=== PATIENT | female | born 1980 | race Asian ===

== ENCOUNTER 2017-09-19 16:33 | Emergency (ER) | payer OTHER ==
[~2017-09-19] VITALS: Ht 162.6 cm; Wt 88.5 kg
[~2017-09-19 16:33] MED LIST: CLEOCIN HCL300 M1 PO; CODEINE; GUAIFENESIN; LEVOFLOXACIN500 MG; MELOXICAM PO; TESSALON PO; flexeril PO
--- NOTE | 2017-09-19 16:42 | ED AMS/SEIZURE/WEAK/DIZZY ---
History of Present Illness General Chief Complaint: Dizziness Stated Complaint: BIBA FOR DIZZINESS AND HOTFLASHES Source: patient, family, old records Exam Limitations: no limitations Vital Signs & Intake/Output Vital Signs & Intake/Output Vital Signs Date Time Temp Pulse Resp B/P B/P Pulse O2 O2 Flow FiO2 Mean Ox Delivery Rate 09/19 1842 98.7 80 16 148/79 99 Room Air 09/19 1729 Room Air 09/19 1636 98.6 81 16 150/76 100 Room Air Allergies Coded Allergies: Penicillins (UNKNOWN 12/20/15) Reconcile Medications [CHERATUSSIN AC 100 m] (Reported) Clindamycin HCl (Cleocin HCl) 300 MG CAPSULE 1 CAP PO TID PHARYNGITIS [flexeril] 1 TAB PO Q8H PRN MUSCLE RELAXANT FLEXERIL 10MG TABS MAY CAUSE DROWSINESS [[id number] MG] (Reported) Meclizine HCl 25 MG TABLET 1 TAB PO TIDPRN PRN DIZZINESS [MELOXICAM] 15 MG PO DAILY PRN PAIN/INFLAMMATION [TESSALON] 100 MG PO Q8H PRN COUGH Triage Nurses Notes Reviewed? yes Onset: Abrupt Duration: day(s): (1), constant Timing: recent history Injury Environment: home Severity: moderate Severity Numbers: 7 No Modifying Factors: none Associated Symptoms: DENIES HPI: 37-year-old female with history of chronic tension headaches presents to the ER for evaluation after she states she developed sudden onset of a frontal headache around 10:00 this morning followed by room spinning dizziness around 12 PM. She describes it as a throbbing sensation. No history of vertigo she denies any nausea vomiting. Symptoms are worse with head movement. She feels the room is spinning. No tinnitus. No recent fall or head trauma no vision changes fever chills. No chest pain palpitations shortness of breath abdominal pain. She has not taken anything for her headache (Quinten Chavez) Past History Travel History Traveled to [place] past 21 day No Medical History Any Pertinent Medical History? 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 No (Quinten Chavez) Review of Systems Review of Systems Constitutional: Reports: see HPI. Comments Review of systems: See HPI, All other systems negative. Constitutional, no chills no fever, HEENT: no sore throat no congestion Cardiovascular: No chest pain , no palpitation Skin: no rashes, no change in skin Respiratory: No dyspnea no cough no sputum GI: No nausea no vomiting, no diarrhea, Muscle skeletal: No joint pain, no back pain Neurologic: , no headache Heme/endocrine: No bruising (Quinten Chavez) Physical Exam Physical Exam General Appearance: well developed/nourished, no apparent distress, alert Comments: Well-developed well-nourished person in no acute distress HEENT: Normal EENT exam; PERRL, EOMI. HEAD is atraumatic. No nystagmus moist mucous membranes. Neck: Supple, normal range of motion Back: Full range of motion Cardiovascular: Regular rate and rhythms no murmurs rubs Respiratory: Chest nontender.There were no bony deformities, no asymmetry. No respiratory distress. Patient speaking in full complete sentences. Breath sounds clear to auscultation bilaterally: NO W/R/R Abdomen: Soft, nontender nondistended Extremity: No edema, full range of motion of extremities, 5 out of 5 strength noted to bilateral upper and lower extremities Neuro: Alert oriented x3, motor sensory normal, cranial nerves II through XII grossly intact. There were no obvious focal neurologic abnormalities. Skin: No appreciable rash on exposed skin, skin is warm and dry. Psych: Anxious, memory and judgment is normal. Core Measures ACS in differential dx? Yes CVA/TIA Diagnosis No Sepsis Present: No Sepsis Focused Exam Completed? No (Quinten Chavez) Progress Differential Diagnosis: arrythmia, anemia, benign positional vertigo, CVA/stroke , dehydration, electrolyte imbalance, intracranial Hem., intracranial mass/tumor , presyncope, post-traumatic vertigo, vertebrobasilar insuff, ANXIETY Plan of Care: Orders Procedure Date/time Status Saline Lock 09/19 1657 Active TROPONIN LEVEL 09/19 1657 Complete HUMAN BETA HCG SCREEN 09/19 1657 Complete COMPREHENSIVE METABOLIC PANEL 09/19 1657 Complete CBC WITHOUT DIFFERENTIAL 09/19 1657 Complete EKG 09/19 1657 Active Laboratory Tests 09/19/17 1722: Anion Gap 11, Estimated GFR > 60, BUN/Creatinine Ratio 21.4, Glucose 100 H, Calcium 9.1, Total Bilirubin 0.5, AST 30, ALT 26, Alkaline Phosphatase 70, Troponin I < 0.01, Total Protein 7.6, Albumin 4.1, Globulin 3.5, Albumin/ Globulin Ratio 1.2, Total Beta HCG NEGATIVE, CBC w Diff NO MAN DIFF REQ, RBC 4.97, MCV 76.8 L, MCH 25.2 L, MCHC 32.8 L, RDW 15.1 H, MPV 8.3, Gran % 63.3, Lymphocytes % 26.9, Monocytes % 6.7, Eosinophils % 2.6, Basophils % 0.5, Absolute Granulocytes 6.1, Absolute Lymphocytes 2.6, Absolute Monocytes 0.6, Absolute Eosinophils 0.3, Absolute Basophils 0.1 Patient medicated with IV Toradol IV fluids Ativan 0.5 mg IV as patient is currently anxious CAT scan ordered 1800 patient reported to feeling improved, pending CAT scan and discussed with her and her at length all of her labs to date 09/19/2017 6:33:30 PM patient reports feeling significantly improved denies headache at this time denies dizziness. Discussed with her apparently fall for labs once again and her CAT scan findings we'll send her home with a prescription for meclizine return precautions were discussed at least she'll follow up with her primary care physician tomorrow I answered all of her questions Diagnostic Imaging: Viewed by Me: CT Scan. Discussed w/RAD: CT Scan. Radiology Impression: PATIENT: GUILLE RUDOLPH PRESENT AGE : 37 PATIENT ACCOUNT NO: [id number] : 79 LOCATION: [facility] ORDERING PHYSICIAN: Quinten NIÑO SERVICE DATE: 09/19/17 EXAM TYPE: CAT - CT HEAD WO IV CONTRAST EXAMINATION: CT HEAD WITHOUT CONTRAST CLINICAL INFORMATION: Dizziness. COMPARISON: None TECHNIQUE: Contiguous axial imaging was performed from the skull base to vertex without intravenous administration of contrast. DLP: 616.8 mGy-cm FINDINGS: There is no evidence of acute intracranial hemorrhage or territorial infarction. No abnormal mass effect or midline shift is seen. Bah to white matter differentiation is well preserved. No extra-axial fluid collections are identified. There is an incidental jeramie cisterna magna The ventricles are normal in size. There is no abnormal attenuation within the brain parenchyma. The osseous structures and soft tissues are normal. The mastoid air cells and visualized portions of the paranasal sinuses are well aerated. IMPRESSION: No acute intracranial pathology. DICTATED BY: Marco Antonio Contreras MD DATE/TIME DICTATED:09/19/171809 PARLIAMENTARY LIBRARIAN:SANDRA DATE/TIME TRANSCRIBED:09/19/171809 CONFIDENTIAL, DO NOT COPY WITHOUT APPROPRIATE AUTHORIZATION. <Electronically signed in Other Vendor System> SIGNED BY: Marco Antonio Contreras MD 09/19/171813 Initial ED EKG: normal intervals, normal p-waves, normal QRS complex, normal sinus rhythm (Quinten Chavez) Departure Departure Time of Disposition: 1828 Disposition: HOME OR SELF CARE Condition: Stable Clinical Impression Primary Impression: Vertigo Referrals: Candis Vargas APRN (PCP/Family) Additional Instructions: MECLIZINE FOR DIZZINESS IF NEEDED. REST, DRINK PLENTY OF FLUIDS. FOLLOW UP WITH YOUR PMD THIS WEEK. RETURN WITH ANY CONCERNS Departure Forms: Customer Survey General Discharge Information Prescriptions: Current Visit Scripts Meclizine HCl 1 TAB PO TIDPRN PRN DIZZINESS #15 TAB (Quinten Chavez) PA/SHEET METAL WELDER Co-Sign Statement Statement: ED Attending supervision documentation- I saw and evaluated the patient. I have also reviewed all the pertinent lab results and diagnostic results. I agree with the findings and the plan of care as documented in the PA's/SHEET METAL WELDER's documentation. x I have reviewed the ED Record and agree with the PA's/SHEET METAL WELDER's documentation. [] Additions or exceptions (if any) to the PAs/SHEET METAL WELDER's note and plan are summarized below: [] (Martínez WHARTON,Yong)
[2017-09-19 17:32] LABS: ABSOLUTE BASOPHIL COUNT 0.1 /CUMM (0.0-0.2); ABSOLUTE EOSINOPHIL COUNT 0.3 /CUMM (0.0-0.7); ABSOLUTE GRANULOCYTE CT 6.1 /CUMM (1.4-6.5); ABSOLUTE LYMPH COUNT 2.6 /CUMM (1.2-3.4); ABSOLUTE MONOCYTE COUNT 0.6 /CUMM (0.10-0.60); BASOPHIL % 0.5 % (0.0-2.0); EOSINOPHIL % 2.6 % (0-5); GRANULOCYTE % 63.3 % (42.2-75.2); HEMATOCRIT 38.2 % (37-47); MEAN CORPUSCULAR HGB 25.2 PG (27.0-31.0); MEAN CORPUSCULAR HGB CONC 32.8 G/DL (33.0-37.0); MEAN CORPUSCULAR VOLUME 76.8 FL (81.0-99.0); MEAN PLATELET VOLUME 8.3 FL (7.4-10.4); PLATELET COUNT 373 /CUMM (130-400); RBC DISTRIBUTION WIDTH 15.1 % (11.5-14.5); RED BLOOD CELL CT 4.97 /CUMM (4.20-5.40); WHITE BLOOD CELL COUNT 9.6 /CUMM (4.8-10.8)
--- NOTE | 2017-09-19 18:14 | CT SCAN REPORT ---
EXAMINATION: CT HEAD WITHOUT CONTRAST CLINICAL INFORMATION: Dizziness. COMPARISON: None TECHNIQUE: Contiguous axial imaging was performed from the skull base to vertex without intravenous administration of contrast. DLP: 616.8 mGy-cm FINDINGS: There is no evidence of acute intracranial hemorrhage or territorial infarction. No abnormal mass effect or midline shift is seen. Bah to white matter differentiation is well preserved. No extra-axial fluid collections are identified. There is an incidental jeramie cisterna magna The ventricles are normal in size. There is no abnormal attenuation within the brain parenchyma. The osseous structures and soft tissues are normal. The mastoid air cells and visualized portions of the paranasal sinuses are well aerated. IMPRESSION: No acute intracranial pathology.
[2017-09-19] MEDS ORDERED: MECLIZINE HCL25 MG PO (18:34)
[2017-09-19 18:42] VITALS: BP 148/79
== END 2017-09-19 18:45 ==
LOC: ERH 16:33
PROVIDERS: Physician Assistant Medical
DX: R42 Dizziness and giddiness (principal)
CPT/HCPCS: 93005; 93010; 96374; 96375; J1885